=== PATIENT | female | born 1950 | race Caucasian/White ===

== ENCOUNTER 2016-04-27 15:24 | Inpatient (IN) | payer MEDICARE, OTHER ==
[~2016-04-27] VITALS: Ht 162.6 cm; Wt 107.7 kg
[2016-04-27 15:50] VITALS: RESP 42
[2016-04-27] MEDS ORDERED: METHYLPRED SOD SUCC 125 MG/2 ML VIAL ONE (16:04)
[2016-04-27] MEDS ORDERED: DUONEB INH ONE ×2 (16:08)
[2016-04-27] MEDS ORDERED: AZITHROMYCIN 500 MG VIAL IV ONE (17:14)
[2016-04-27] MEDS ORDERED: SODIUM CHLORIDE 0.9% 100 ML IV ONE (17:15)
[2016-04-27] MEDS ORDERED: Furosemide 40 MG/4 ML VIAL ONE (17:15)
[2016-04-27] MEDS ORDERED: CEFTRIAXONE 1 GM VIAL ONE (17:15)
[2016-04-27] MEDS ORDERED: SODIUM CHLORIDE 0.9% 250 ML IV ONE (17:15)
[2016-04-27] MEDS ORDERED: SODIUM CHLORIDE 0.9% 500 ML IV ONE (17:21)
[2016-04-27] MEDS ORDERED: ACETAMINOPHEN 325 MG TAB PO PRN (17:55)
[2016-04-27] MEDS ORDERED: NICOTINE 21 MG/24 HR TRANSDERM PRN (17:55)
[2016-04-27] MEDS ORDERED: BISACODYL 10 MG SUPP RECTAL PRN (17:55)
[2016-04-27] MEDS ORDERED: SALINE FLUSH 10 ML FLUSH PRN (17:55)
[2016-04-27] MEDS ORDERED: GLUCAGON 1 MG VIAL IM PRN (17:55)
[2016-04-27] MEDS ORDERED: BISACODYL EC 5 MG TAB PO PRN (17:55)
[2016-04-27] MEDS ORDERED: ONDANSETRON 4 MG VIAL IV PRN (17:55)
[2016-04-27] MEDS ORDERED: DEXTROSE 50% SYRINGE 50 ML IV PRN (17:55)
[2016-04-27] MEDS ORDERED: FLEET ENEMA 132 ML BTL RECTAL PRN (17:55)
[2016-04-27] MEDS ORDERED: LOPERAMIDE 2 MG CAPSULE PO PRN (17:55)
[2016-04-27] MEDS ORDERED: GUAIFEN/DM 10 ML UDC PO PRN (17:55)
[2016-04-27] MEDS ORDERED: MAG HYDROX 30 ML UDC PO PRN (17:55)
[2016-04-27] MEDS ORDERED: ALU/MAG/SIM 30 ML UDC PO PRN (17:55)
[2016-04-27 18:30] VITALS: RESP 39
[2016-04-27] MEDS: DUONEB INH SCH ×2 (19:00→23:47)
[2016-04-27 21:00] VITALS: BP_SYST 139; RESP 22; TEMP 98.2
[2016-04-27] MEDS: KCL CR 10 MEQ TAB PO SCH (22:59)
[2016-04-27] MEDS: CLOPIDOGREL 75 MG TAB PO SCH (22:59)
[2016-04-27] MEDS: Atorvastatin 20 MG TAB PO SCH (22:59)
[2016-04-27] MEDS: ATENOLOL 50 MG TAB PO SCH (23:00)
[2016-04-27] MEDS: ASPIRIN EC 81 MG TAB PO SCH (23:02)
[2016-04-27] MEDS: SALINE FLUSH 10 ML FLUSH SCH (23:03)
[2016-04-27] MEDS: FAMOTIDINE 20 MG INJ IV SCH (23:04)
[2016-04-27 23:48] VITALS: RESP 28; Ht 162.6 cm; Wt 107.7 kg
[2016-04-27 23:49] VITALS: BP_SYST 143; RESP 22; TEMP 98.6
[2016-04-28] VITALS (11 sets, daily range): BP systolic 113–133; RESP 18–28; TEMP 97.5–98.6
[2016-04-28] MEDS: Furosemide 40 MG/4 ML VIAL IV SCH ×2 (01:18→08:55)
[2016-04-28] MEDS: DUONEB INH SCH ×6 (02:56→22:23)
[2016-04-28] MEDS: SODIUM CHLORIDE 0.9% FLUSH BAG 500 ML IV SCH (07:00)
[2016-04-28] MEDS: FAMOTIDINE 20 MG INJ IV SCH (08:54)
[2016-04-28] MEDS: KCL CR 10 MEQ TAB PO SCH ×2 (08:54→21:51)
[2016-04-28] MEDS: CLOPIDOGREL 75 MG TAB PO SCH (08:54)
[2016-04-28] MEDS: CEFTRIAXONE 1 GM in SODIUM CHLORIDE 0.9% 50 ML IV SCH (08:56)
[2016-04-28] MEDS: SALINE FLUSH 10 ML FLUSH SCH ×2 (08:56→21:50)
[2016-04-28] MEDS: ENOXAPARIN 40 MG/0.4 ML SYR SUBQ SCH (08:57)
[2016-04-28] MEDS: NITROGLYCERIN 0.2 MG/HR PATCH TRANSDERM SCH (09:00)
[2016-04-28] MEDS: LEVEMIR INSULIN SUBQ SCH (09:01)
[2016-04-28] MEDS: Furosemide 40 MG TAB PO SCH ×2 (17:04→23:46)
[2016-04-28] MEDS ORDERED: MISSING DOSE XX ONE (21:45)
[2016-04-28] MEDS: FAMOTIDINE 20 MG TAB PO SCH (21:52)
[2016-04-28] MEDS: ATENOLOL 50 MG TAB PO SCH (21:52)
[2016-04-28] MEDS: Atorvastatin 20 MG TAB PO SCH (22:06)
[2016-04-29] VITALS (10 sets, daily range): BP systolic 101–124; RESP 16–30; TEMP 97.4–98.5
[2016-04-29] MEDS: DUONEB INH SCH ×6 (02:19→23:02)
[2016-04-29] MEDS: SODIUM CHLORIDE 0.9% FLUSH BAG 500 ML IV SCH (05:52)
[2016-04-29] MEDS: CLOPIDOGREL 75 MG TAB PO SCH (08:40)
[2016-04-29] MEDS: KCL CR 10 MEQ TAB PO SCH ×2 (08:40→20:57)
[2016-04-29] MEDS: LEVEMIR INSULIN SUBQ SCH (08:40)
[2016-04-29] MEDS: Furosemide 40 MG TAB PO SCH ×3 (08:41→23:22)
[2016-04-29] MEDS: FAMOTIDINE 20 MG TAB PO SCH ×2 (08:41→20:57)
[2016-04-29] MEDS: SALINE FLUSH 10 ML FLUSH SCH ×2 (08:42→20:58)
[2016-04-29] MEDS: ENOXAPARIN 40 MG/0.4 ML SYR SUBQ SCH (08:43)
[2016-04-29] MEDS: NITROGLYCERIN 0.2 MG/HR PATCH TRANSDERM SCH (08:44)
[2016-04-29] MEDS ORDERED: MISSING DOSE XX ONE (08:50)
[2016-04-29] MEDS: ASPIRIN EC 81 MG TAB PO SCH (09:23)
[2016-04-29] MEDS: CEFTRIAXONE 1 GM in SODIUM CHLORIDE 0.9% 50 ML IV SCH (09:24)
[2016-04-29] MEDS: DOXYCYCLINE 100 MG TAB PO SCH ×2 (10:51→20:57)
[2016-04-29] MEDS: PREDNISONE 20 MG TAB PO SCH (10:51)
[2016-04-29] MEDS: ATENOLOL 50 MG TAB PO SCH (20:56)
[2016-04-29] MEDS: Atorvastatin 20 MG TAB PO SCH (20:57)
[2016-04-30] VITALS (7 sets, daily range): BP systolic 113–148; RESP 16–24; TEMP 98.2–98.7
[2016-04-30] MEDS: DUONEB INH SCH ×6 (02:44→22:51)
[2016-04-30] MEDS: SODIUM CHLORIDE 0.9% FLUSH BAG 500 ML IV SCH (06:00)
[2016-04-30] MEDS ORDERED: MISSING DOSE XX ONE (08:00)
[2016-04-30] MEDS: PREDNISONE 20 MG TAB PO SCH (08:45)
[2016-04-30] MEDS: SALINE FLUSH 10 ML FLUSH SCH ×2 (08:45→20:00)
[2016-04-30] MEDS: KCL CR 10 MEQ TAB PO SCH ×2 (08:46→20:08)
[2016-04-30] MEDS: CLOPIDOGREL 75 MG TAB PO SCH (08:46)
[2016-04-30] MEDS: DOXYCYCLINE 100 MG TAB PO SCH ×2 (08:46→20:08)
[2016-04-30] MEDS: FAMOTIDINE 20 MG TAB PO SCH ×2 (08:46→20:08)
[2016-04-30] MEDS: Furosemide 40 MG TAB PO SCH ×3 (08:46→23:40)
[2016-04-30] MEDS: ENOXAPARIN 40 MG/0.4 ML SYR SUBQ SCH (08:47)
[2016-04-30] MEDS: NITROGLYCERIN 0.2 MG/HR PATCH TRANSDERM SCH (08:49)
[2016-04-30] MEDS: LEVEMIR INSULIN SUBQ SCH (09:03)
[2016-04-30] MEDS: GABAPENTIN 100 MG CAP PO SCH ×3 (10:55→20:08)
[2016-04-30] MEDS: clonazePAM 0.5 MG TAB PO SCH ×2 (10:55→20:19)
[2016-04-30] MEDS: Atorvastatin 20 MG TAB PO SCH (20:08)
[2016-04-30] MEDS: ATENOLOL 50 MG TAB PO SCH (20:08)
[2016-05-01] VITALS (9 sets, daily range): BP systolic 106–131; RESP 16–19; TEMP 97.4–98.8
[2016-05-01] MEDS: DUONEB INH SCH ×6 (02:34→22:24)
[2016-05-01] MEDS: SODIUM CHLORIDE 0.9% FLUSH BAG 500 ML IV SCH ×2 (06:00→23:33)
[2016-05-01] MEDS: SALINE FLUSH 10 ML FLUSH SCH ×3 (08:55→23:33)
[2016-05-01] MEDS: KCL CR 10 MEQ TAB PO SCH ×2 (08:56→20:41)
[2016-05-01] MEDS: DOXYCYCLINE 100 MG TAB PO SCH ×2 (08:56→20:41)
[2016-05-01] MEDS: GABAPENTIN 100 MG CAP PO SCH ×3 (08:56→20:42)
[2016-05-01] MEDS: CLOPIDOGREL 75 MG TAB PO SCH (08:56)
[2016-05-01] MEDS: Furosemide 40 MG TAB PO SCH ×3 (08:56→23:33)
[2016-05-01] MEDS: clonazePAM 0.5 MG TAB PO SCH ×2 (08:57→20:41)
[2016-05-01] MEDS: ASPIRIN EC 81 MG TAB PO SCH (08:57)
[2016-05-01] MEDS: PREDNISONE 20 MG TAB PO SCH (08:57)
[2016-05-01] MEDS: FAMOTIDINE 20 MG TAB PO SCH ×2 (08:57→20:41)
[2016-05-01] MEDS: ENOXAPARIN 40 MG/0.4 ML SYR SUBQ SCH (08:58)
[2016-05-01] MEDS: NITROGLYCERIN 0.2 MG/HR PATCH TRANSDERM SCH (08:58)
[2016-05-01] MEDS: LEVEMIR INSULIN SUBQ SCH (08:59)
[2016-05-01] MEDS: ATENOLOL 50 MG TAB PO SCH (20:41)
[2016-05-01] MEDS: Atorvastatin 20 MG TAB PO SCH (20:41)
[2016-05-02 00:07] VITALS: RESP 21
[2016-05-02] MEDS: DUONEB INH SCH ×6 (02:30→22:24)
[2016-05-02 03:45] VITALS: BP_SYST 130; RESP 16; TEMP 97.6
[2016-05-02 07:44] VITALS: BP_SYST 108; RESP 18; TEMP 97.9
[2016-05-02] MEDS: FAMOTIDINE 20 MG TAB PO SCH ×2 (08:40→20:30)
[2016-05-02] MEDS: DOXYCYCLINE 100 MG TAB PO SCH ×2 (08:41→20:30)
[2016-05-02] MEDS: PREDNISONE 10 MG TAB PO SCH (08:41)
[2016-05-02] MEDS: GABAPENTIN 100 MG CAP PO SCH ×3 (08:41→20:30)
[2016-05-02] MEDS: CLOPIDOGREL 75 MG TAB PO SCH (08:41)
[2016-05-02] MEDS: Furosemide 40 MG TAB PO SCH ×3 (08:42→23:06)
[2016-05-02] MEDS: KCL CR 10 MEQ TAB PO SCH ×2 (08:42→20:30)
[2016-05-02] MEDS: clonazePAM 0.5 MG TAB PO SCH ×2 (08:42→20:30)
[2016-05-02] MEDS: NITROGLYCERIN 0.2 MG/HR PATCH TRANSDERM SCH (08:43)
[2016-05-02] MEDS: LEVEMIR INSULIN SUBQ SCH (08:44)
[2016-05-02] MEDS: ENOXAPARIN 40 MG/0.4 ML SYR SUBQ SCH (08:44)
[2016-05-02 15:41] VITALS: BP_SYST 122; RESP 18; TEMP 97.8
[2016-05-02 19:00] VITALS: BP_SYST 112; RESP 18; TEMP 98.8
[2016-05-02] MEDS: SALINE FLUSH 10 ML FLUSH SCH (19:52)
[2016-05-02] MEDS: Atorvastatin 20 MG TAB PO SCH (20:30)
[2016-05-02] MEDS: ATENOLOL 50 MG TAB PO SCH (20:30)
[2016-05-02 23:00] VITALS: BP_SYST 142; RESP 18; TEMP 98.4
[2016-05-03] MEDS: DUONEB INH SCH ×6 (02:50→22:30)
[2016-05-03 03:00] VITALS: BP_SYST 132; RESP 18; TEMP 98.2
[2016-05-03] MEDS: SODIUM CHLORIDE 0.9% FLUSH BAG 500 ML IV SCH (03:45)
[2016-05-03 07:42] VITALS: BP_SYST 128; RESP 18; TEMP 97.6
[2016-05-03] MEDS: KCL CR 10 MEQ TAB PO SCH ×2 (08:30→20:28)
[2016-05-03] MEDS: DOXYCYCLINE 100 MG TAB PO SCH ×2 (08:30→20:27)
[2016-05-03] MEDS: CLOPIDOGREL 75 MG TAB PO SCH (08:30)
[2016-05-03] MEDS: FAMOTIDINE 20 MG TAB PO SCH ×2 (08:30→20:28)
[2016-05-03] MEDS: GABAPENTIN 100 MG CAP PO SCH ×3 (08:31→20:27)
[2016-05-03] MEDS: ASPIRIN EC 81 MG TAB PO SCH (08:31)
[2016-05-03] MEDS: PREDNISONE 10 MG TAB PO SCH (08:31)
[2016-05-03] MEDS: Furosemide 40 MG TAB PO SCH ×3 (08:31→23:22)
[2016-05-03] MEDS: SALINE FLUSH 10 ML FLUSH SCH ×2 (08:32→20:00)
[2016-05-03] MEDS: ENOXAPARIN 40 MG/0.4 ML SYR SUBQ SCH (08:33)
[2016-05-03] MEDS: NITROGLYCERIN 0.2 MG/HR PATCH TRANSDERM SCH (08:33)
[2016-05-03] MEDS: clonazePAM 0.5 MG TAB PO SCH ×2 (08:51→20:27)
[2016-05-03] MEDS: LEVEMIR INSULIN SUBQ SCH (08:52)
[2016-05-03 11:15] VITALS: BP_SYST 127; RESP 18; TEMP 98
[2016-05-03 15:00] VITALS: BP_SYST 124; RESP 18; TEMP 98.1
[2016-05-03 20:23] VITALS: BP_SYST 126; RESP 20; TEMP 97.4
[2016-05-03] MEDS: ATENOLOL 50 MG TAB PO SCH (20:27)
[2016-05-03] MEDS: Atorvastatin 20 MG TAB PO SCH (20:29)
[2016-05-04] VITALS (9 sets, daily range): BP systolic 101–133; RESP 16–22; TEMP 97.4–98.6
[2016-05-04] MEDS: DUONEB INH SCH ×6 (02:43→23:26)
[2016-05-04] MEDS: SODIUM CHLORIDE 0.9% FLUSH BAG 500 ML IV SCH (06:00)
[2016-05-04] MEDS ORDERED: MISSING DOSE XX ONE (08:55)
[2016-05-04] MEDS: ENOXAPARIN 40 MG/0.4 ML SYR SUBQ SCH (09:00)
[2016-05-04] MEDS: PREDNISONE 10 MG TAB PO SCH (09:02)
[2016-05-04] MEDS: GABAPENTIN 100 MG CAP PO SCH ×3 (09:02→20:18)
[2016-05-04] MEDS: FAMOTIDINE 20 MG TAB PO SCH ×2 (09:03→20:18)
[2016-05-04] MEDS: CLOPIDOGREL 75 MG TAB PO SCH (09:03)
[2016-05-04] MEDS: Furosemide 40 MG TAB PO SCH ×3 (09:03→23:27)
[2016-05-04] MEDS: clonazePAM 0.5 MG TAB PO SCH ×2 (09:03→20:18)
[2016-05-04] MEDS: DOXYCYCLINE 100 MG TAB PO SCH ×2 (09:03→20:18)
[2016-05-04] MEDS: SALINE FLUSH 10 ML FLUSH SCH ×2 (09:05→20:00)
[2016-05-04] MEDS: LEVEMIR INSULIN SUBQ SCH (09:07)
[2016-05-04] MEDS: NITROGLYCERIN 0.2 MG/HR PATCH TRANSDERM SCH (09:10)
[2016-05-04] MEDS: KCL CR 10 MEQ TAB PO SCH ×2 (10:56→20:18)
[2016-05-04] MEDS: Atorvastatin 20 MG TAB PO SCH (20:18)
[2016-05-04] MEDS: ATENOLOL 50 MG TAB PO SCH (20:18)
[2016-05-05] VITALS (9 sets, daily range): BP systolic 104–140; RESP 16–22; TEMP 97.5–98
[2016-05-05] MEDS: DUONEB INH SCH ×6 (02:49→22:24)
[2016-05-05] MEDS: SODIUM CHLORIDE 0.9% FLUSH BAG 500 ML IV SCH (05:28)
[2016-05-05] MEDS: SALINE FLUSH 10 ML FLUSH SCH ×2 (07:56→21:00)
[2016-05-05] MEDS: FAMOTIDINE 20 MG TAB PO SCH ×2 (08:07→21:01)
[2016-05-05] MEDS: NITROGLYCERIN 0.2 MG/HR PATCH TRANSDERM SCH (08:07)
[2016-05-05] MEDS: PREDNISONE 10 MG TAB PO SCH (08:07)
[2016-05-05] MEDS: CLOPIDOGREL 75 MG TAB PO SCH (08:07)
[2016-05-05] MEDS: DOXYCYCLINE 100 MG TAB PO SCH ×2 (08:07→21:01)
[2016-05-05] MEDS: KCL CR 10 MEQ TAB PO SCH ×2 (08:08→21:00)
[2016-05-05] MEDS: clonazePAM 0.5 MG TAB PO SCH ×2 (08:08→21:01)
[2016-05-05] MEDS: ASPIRIN EC 81 MG TAB PO SCH (08:08)
[2016-05-05] MEDS: GABAPENTIN 100 MG CAP PO SCH ×3 (08:08→21:01)
[2016-05-05] MEDS: Furosemide 40 MG TAB PO SCH ×2 (08:08→16:02)
[2016-05-05] MEDS: ENOXAPARIN 40 MG/0.4 ML SYR SUBQ SCH (08:09)
[2016-05-05] MEDS: LEVEMIR INSULIN SUBQ SCH (08:09)
[2016-05-05] MEDS: ATENOLOL 50 MG TAB PO SCH (21:01)
[2016-05-05] MEDS: Atorvastatin 20 MG TAB PO SCH (21:01)
[2016-05-06 00:10] VITALS: RESP 22
[2016-05-06] MEDS: DUONEB INH SCH ×5 (02:10→18:44)
[2016-05-06] MEDS: Furosemide 40 MG TAB PO SCH ×3 (02:45→16:58)
[2016-05-06 03:42] VITALS: BP_SYST 131; RESP 22; TEMP 97.6
[2016-05-06] MEDS: SODIUM CHLORIDE 0.9% FLUSH BAG 500 ML IV SCH (05:51)
[2016-05-06 07:42] VITALS: BP_SYST 123; RESP 20; TEMP 97.8
[2016-05-06] MEDS: SALINE FLUSH 10 ML FLUSH SCH (08:17)
[2016-05-06] MEDS: PREDNISONE 10 MG TAB PO SCH (08:19)
[2016-05-06] MEDS: NITROGLYCERIN 0.2 MG/HR PATCH TRANSDERM SCH (08:19)
[2016-05-06] MEDS: DOXYCYCLINE 100 MG TAB PO SCH (08:19)
[2016-05-06] MEDS: FAMOTIDINE 20 MG TAB PO SCH (08:19)
[2016-05-06] MEDS: GABAPENTIN 100 MG CAP PO SCH ×2 (08:19→16:58)
[2016-05-06] MEDS: CLOPIDOGREL 75 MG TAB PO SCH (08:19)
[2016-05-06] MEDS: KCL CR 10 MEQ TAB PO SCH (08:19)
[2016-05-06] MEDS: LEVEMIR INSULIN SUBQ SCH (08:20)
[2016-05-06] MEDS: clonazePAM 0.5 MG TAB PO SCH (08:20)
[2016-05-06] MEDS: ENOXAPARIN 40 MG/0.4 ML SYR SUBQ SCH (08:21)
[2016-05-06 15:30] VITALS: BP_SYST 126; RESP 18; TEMP 97.2
[2016-05-06 16:10] VITALS: BP_SYST 122; RESP 18; TEMP 97.8
[2016-05-06 17:55] VITALS: BP_SYST 122; RESP 18; TEMP 97.8
== END 2016-05-06 16:00 | disposition home health service (06) | DRG 291 ==
LOC: CANRESERV → ENRESERVTM → ENRESERVDT → ER 15:24 → EMR 18:13 → ENPENDDIS 18:13 → DELPENDDIS 18:13 → 4THE 20:38
PROVIDERS: ADMIT Internal Medicine; ATTEND Internal Medicine
DX: I11.0 Hypertensive heart disease with heart failure (principal); J96.22 Acute and chronic respiratory failure with hypercapnia; J96.21 Acute and chronic respiratory failure with hypoxia; J44.1 Chronic obstructive pulmonary disease with (acute) exacerbation; E66.2 Morbid (severe) obesity with alveolar hypoventilation; Z68.41 Body mass index [BMI] 40.0-44.9, adult; I50.33 Acute on chronic diastolic (congestive) heart failure; I25.10 Atherosclerotic heart disease of native coronary artery without angina pectoris; Z72.0 Tobacco use; Z85.820 Personal history of malignant melanoma of skin; Z85.3 Personal history of malignant neoplasm of breast; Z82.49 Family history of ischemic heart disease and other diseases of the circulatory system; Z83.3 Family history of diabetes mellitus; Z80.9 Family history of malignant neoplasm, unspecified; F41.9 Anxiety disorder, unspecified; F32.9 Major depressive disorder, single episode, unspecified
CPT/HCPCS: 36415; 36600; 71010; 71020; 71250; 80048; 80053; 82553; 82803; 82947; 83036; 83605; 83735; 83880; 84439; 84443; 84484; 85025; 87040; 87071; 87088; 93005; 93306; 94640; 94660; 94762; 94799; 96365; 96366; 96375; 99223; 99231; 99232; 99233; 99238; 99239